=== PATIENT | female | born 1995 | race Caucasian/White ===

== ENCOUNTER 2019-03-04 15:05 | Emergency (ER) | payer MEDICAID ==
[2019-03-04] MEDS ORDERED: Aspirin 81 MG Tab.Chew PO ONE (16:17)
--- NOTE | 2019-03-04 16:27 | EDM.PDOC ---
ED HPI GENERAL MEDICAL PROBLEM - General Chief Complaint: Headache Stated Complaint: RIGHT ARM NUMBNESS Time Seen by Provider: 03/04/19 15:35 Source of Information: Reports: Patient History Limitations: Reports: No Limitations - History of Present Illness INITIAL COMMENTS - FREE TEXT/NARRATIVE: 23-year-old female with an all day long syndrome of neurologic deficits including blurry vision, mild confusion, left-sided headache, right arm paresthesia and weakness, and somewhat weakened and loss of coordination of the right leg. She does have a long history of migraines but they've never had physical symptoms. It started this morning with blurry vision, she then developed a left-sided headache and as the day has, on she's had intermittent weakness and lack of coordination of the right arm and leg. The headache is somewhat improved, no fevers or chills, no trauma, no nausea or vomiting. Onset: Gradual (7 hours ago started with blurry vision) Associated Symptoms: Reports: Confusion, Headaches (Left-sided), Malaise, Weakness (Right arm and right leg). Denies: Chest Pain, Cough, Diaphoresis, Nausea/Vomiting, Shortness of Breath Headache Pain Score (Numeric/FACES): 5 - Related Data Allergies Allergy/AdvReac Type Severity Reaction Status Date / Time No Known Allergies Allergy Verified 03/04/19 15:29 Home Meds: Home Meds NK [No Known Home Meds] 03/04/19 [History] Past Medical History [employer] History: Reports: Polycystic Ovaries Psychiatric History: Reports: Anxiety, Bipolar, Dementia, PTSD Social & Family History - Tobacco Use Smoking Status *Q: Current Every Day Smoker Years of Tobacco use: 8 Packs/Tins Daily: 0.2 - Caffeine Use Caffeine Use: Reports: Tea - Recreational Drug Use Recreational Drug Use: No ED ROS GENERAL - Review of Systems Review Of Systems: See Below Constitutional: Denies: Fever, Chills HEENT: Reports: Vision Change Respiratory: Denies: Shortness of Breath Cardiovascular: Denies: Chest Pain Neurological: Reports: Confusion, Headache, Weakness. Denies: Trouble Speaking , Difficulty Walking, Change in Speech ED EXAM, NEURO - Physical Exam Exam: See Below Exam Limited By: No Limitations General Appearance: Alert, No Apparent Distress Eye Exam: Bilateral Eye: EOMI, PERRL Head Exam: Atraumatic Neck: Supple, Non-Tender. No: Carotid Bruit Respiratory/Chest: Lungs Clear Neurological: Alert, Oriented x 3, Other (Patient displays an objective weakness , very slight, to grasp strength of the right hand. I cannot find any other objective findings of neurologic deficit or asymmetry.) Course - Vital Signs Last Recorded V/S: Last Vital Signs Temp 98.3 F 03/04/19 15:27 Pulse 78 03/04/19 15:27 Resp 18 03/04/19 15:27 BP 138/95 H 03/04/19 15:27 Pulse Ox 100 03/04/19 15:27 - Orders/Labs/Meds Meds: Medications Discontinued Medications Generic Name Dose Route Start Last Admin Trade Name Freq PRN Reason Stop Dose Admin Aspirin 324 mg 03/04/19 16:17 03/04/19 16:23 Aspirin PO 03/04/19 16:18 324 mg ONETIME ONE Administration - Re-Assessments/Exams Free Text/Narrative Re-Assessment/Exam: 03/04/19 16:27 CT the head without contrast was obtained, and the patient was given 324 mg of chewable aspirin. 03/04/19 16:[address] was completely normal. Symptoms seem to be improving fairly rapidly. Patient will be discharged with diagnosis of atypical migraine, and return tomorrow if not improving satisfactorily. Continue with anti-inflammatories. Departure - Departure Time of Disposition: 16:57 Disposition: Home, Self-Care 01 Clinical Impression: Migraine Qualifiers: Migraine type: persistent migraine aura without cerebral infarction Status migrainosus presence: without status migrainosus Intractability: not intractable Qualified Code(s): G43.509 - Persistent migraine aura without cerebral infarction, not intractable, without status migrainosus - Discharge Information Instructions: Migraine Headache Referrals: PCP,None [Primary Care Provider] - Forms: ED Department Discharge Care Plan Goals: Rest, continue with anti-inflammatories for the next 24-48 hours and recheck in 1-2 days if not improving satisfactorily. Increase activity as tolerated. Discuss symptoms with your primary doctor if recurring or worsening over time.
--- NOTE | 2019-03-04 16:27 | CRLCT ---
INDICATION: Headache, right-sided weakness and paresthesia TECHNIQUE: CT head without contrast. COMPARISON: None FINDINGS: CSF spaces: Within normal limits for age. Brain parenchyma: The patterson-white differentiation is normal. No sign of mass, hemorrhage, or midline shift. Skull base and calvarium: The visualized paranasal sinuses and mastoid air cells demonstrate no acute or significant findings. The visualized orbits are grossly unremarkable. No skull fractures. IMPRESSION: Unremarkable noncontrast head CT. Please note that all CT scans at this facility use dose modulation, iterative reconstruction, and/or weight-based dosing when appropriate to reduce radiation dose to as low as reasonably achievable. Dictated by Nanci Arreola MD @ Mar 04 2019 4:26PM Signed by Dr. Nanci Arreola @ Mar 04 2019 4:26PM
== END 2019-03-04 16:57 | disposition home or self-care (01) ==
LOC: JP.ED 15:05
DX: G43.509 Persistent migraine aura without cerebral infarction, not intractable, without status migrainosus (principal); F17.210 Nicotine dependence, cigarettes, uncomplicated
CPT/HCPCS: 70450; 99284; A9270; 99283